=== PATIENT | male | born 1980 | race Caucasian/White ===

== ENCOUNTER 2024-07-17 15:12 | Outpatient (CLI) | payer BC | END 2024-07-17 15:13 | disposition home or self-care (01) | LOC: CSHMRI 15:12 | PROVIDERS: ATTEND Orthopaedic Surgery Hand Surgery | DX: M54.12 Radiculopathy, cervical region (principal); M48.02 Spinal stenosis, cervical region | CPT/HCPCS: 72141 ==

== ENCOUNTER 2025-06-14 12:28 | Outpatient (CLI) | payer BC ==
[2025-06-14] MEDS ORDERED: Gadobenate Dimeglumine 2 ML, Sodium Chloride 0.9% 250 ML 10 ML, Iopamidol 8 ML, Lidocai... FS ONE (12:30)
== END 2025-06-14 12:29 | disposition home or self-care (01) ==
LOC: CSHRAD 12:28
PROVIDERS: ATTEND Orthopaedic Surgery
DX: S46.012A Strain of muscle(s) and tendon(s) of the rotator cuff of left shoulder, initial encounter (principal); S43.432A Superior glenoid labrum lesion of left shoulder, initial encounter; M19.012 Primary osteoarthritis, left shoulder; M89.8X1 Other specified disorders of bone, shoulder
CPT/HCPCS: 23350; 77002; A9577; J0166; J7050; Q9967